=== PATIENT | male | born 1960 | race Caucasian/White ===

== ENCOUNTER 2021-02-20 10:17 | Day surgery (SDC) | payer BC, OTHER ==
[2021-02-19 10:57] LABS: ALANINE AMINOTRANSFERASE 32 U/L (12-78); ALBUMIN 3.8 g/dL (3.4-5.0); ANION GAP 5 mmol/L (5-15); CALCIUM 9.3 mg/dL (8.5-10.1); CHLORIDE 105 mmol/L (98-107); CREATININE 1.17 mg/dL (0.7-1.3)
[2021-02-19 10:59] LABS: ALKALINE PHOSPHATASE 78 U/L (45-117); BILIRUBIN,TOTAL 1.2 mg/dL (0.2-1.0); TOTAL PROTEIN 8.1 g/dL (6.4-8.2)
[~2021-02-20] VITALS: Ht 165.1 cm; Wt 63.6 kg
[~2021-02-20 10:17] MED LIST: AMLO-211 PO; BENA20TA54 PO; EZET10TA70 PO; ROSU20TA2 PO; SPIR1TAB PO
[2021-02-20] MEDS ORDERED: CHLORHEXIDINE 15 ML UDC PO ONE (11:00)
[2021-02-20] MEDS ORDERED: LACTATED RINGERS 1,000 ML IV SCH (11:00)
[2021-02-20] MEDS ORDERED: MIDAZOLAM 1 MG/ML, 2ML ONE (11:17)
[2021-02-20] MEDS ORDERED: FENTANYL PF 100 MCG/2ML ONE (11:18)
[2021-02-20] MEDS ORDERED: LABETALOL 5MG/ML, 20ML IV PRN (11:30)
[2021-02-20] MEDS ORDERED: PROMETHAZINE 25 MG/ML, 1ML IVPush PRN (11:30)
[2021-02-20] MEDS ORDERED: ONDANSETRON 2MG/ML, 2ML IVPush PRN (11:30)
[2021-02-20] MEDS ORDERED: hydrALAzine 20 MG/ML, 1ML IV PRN (11:30)
[2021-02-20] MEDS ORDERED: OXYcodone 5 MG/5 ML ORAL.SOL UDC PO PRN (11:30)
[2021-02-20] MEDS ORDERED: FENTANYL PF 100 MCG/2ML IV PRN (11:30)
[2021-02-20] MEDS ORDERED: morphine SULFATE 10 MG/ML, 1ML IVPush PRN (11:30)
[2021-02-20] MEDS ORDERED: GLUCAGON 1 MG ONE (11:32)
[2021-02-20] MEDS ORDERED: PROPOFOL 10 MG/ML, 20ML ONE (11:44)
[2021-02-21] MEDS ORDERED: ATOR20TA PO (08:41)
[2021-02-21] MEDS ORDERED: FLUT9.9S NAS (08:42)
== END 2021-02-20 12:44 | disposition home or self-care (01) ==
LOC: OUT 10:17 → MERGE 12:00 → OUT 12:44
PROVIDERS: ATTEND Internal Medicine
DX: D12.0 Benign neoplasm of cecum (principal); K57.30 Diverticulosis of large intestine without perforation or abscess without bleeding; K64.8 Other hemorrhoids; I10 Essential (primary) hypertension; E78.5 Hyperlipidemia, unspecified; Z79.899 Other long term (current) drug therapy
CPT/HCPCS: 36415; 45381; 45385; 80053; 88305; 93005; J1610; J2250; J2704; J3010; J7120

== ENCOUNTER 2021-02-21 08:12 | Inpatient (IN) | payer OTHER ==
[~2021-02-21] VITALS: Ht 165.1 cm; Wt 60.0 kg
[2021-02-21] MEDS ORDERED: ONDANSETRON 2MG/ML, 2ML ONE (08:29)
[2021-02-21] MEDS ORDERED: ONDANSETRON 2MG/ML, 2ML IVPush ONE (08:30)
[2021-02-21] MEDS ORDERED: SODIUM CHLORIDE 0.9% 1,000ML IVBOLUS ONE (08:30)
--- NOTE | 2021-02-21 08:32 | NUR ---
PT PRESENTS TO ED POST COLONOSCOPY YESTERDAY, STATES HE BEGAN TO HAVE BRIGHT RED BLOOD PER RECTUM STARTING LAST NIGHT. PT IS A&O, RESPS EVEN AND UNLABORED, ALL MONITORS IN PLACE. REPEAT BP 97/64, TAKEN IN SUPINE POSITION. PT DENIES PAIN, HOWEVER DID BEGIN TO VOMIT ONCE ROOMED, MD PALMER AWARE. PRBC'S ORDERED, THIS RN INSTRUCTED TO HOLD TRANSFUSION AT THIS TIME PT IS NOT ACTIVELY BLEEDING PER RECTUM AND BP IMPROVED ONCE LAYING. THIS RN INSTRUCTED BY MD PALMER TO HOLD PRBC'S UNTIL HEMOGLOBIN/HEMATOCRIT RESULTED.
--- NOTE | 2021-02-21 08:33 | NUR ---
x2 larg bore IV started, NS wide open on pressure bag. Pt with episode of n/v no blood. verbal for zofran. 0833: 97/s pt responding well to IVF. Pt was t/c lab took blood.
--- NOTE | 2021-02-21 08:38 | NUR ---
Pt reports nausea improved s/p zofran, pt had emesis x 1 (small, clear in color), no blood noted in emesis. pt is a&o, resps even and unlabored, nsr on monitoring and evaluation advisor rate 60s at this time. pt reports he has had 5 bloody bowel movements since this am, starting at 0330, none yet in ED. Per MD Olmos, blood bank only to have one unit of blood on standby, blood bank notified.
[2021-02-21] MEDS ORDERED: ATOR20TA PO (08:41)
[2021-02-21] MEDS ORDERED: FLUT9.9S NAS (08:42)
[2021-02-21 08:45] LABS: BASOPHILS % (AUTO) 1 % (0-1); EOSINOPHILS % (AUTO) 2 % (1-7); LYMPHOCYTES % (AUTO) 20 % (22-44); MEAN CORPUSCULAR HGB CONC 34.3 g/dL (33.2-36.2); MEAN PLATELET VOLUME 8.1 fL (7.4-10.4); MONOCYTES % (AUTO) 6 % (2-9); NEUTROPHILS % (AUTO) 71 % (42-75); PLATELET COUNT 297 x10^3/uL (130-400); RED BLOOD COUNT 4.34 x10^6/uL (4.38-5.82); RED CELL DISTRIBUTION WIDTH 13.1 % (9.4-14.8)
[2021-02-21 08:48] LABS: ALANINE AMINOTRANSFERASE 26 U/L (12-78); ALBUMIN 3.1 g/dL (3.4-5.0); ANION GAP 9 mmol/L (5-15); CALCIUM 8.8 mg/dL (8.5-10.1); CHLORIDE 108 mmol/L (98-107); CREATININE 1.92 mg/dL (0.7-1.3)
[2021-02-21 08:50] LABS: ALKALINE PHOSPHATASE 64 U/L (45-117); BILIRUBIN,TOTAL 0.7 mg/dL (0.2-1.0); TOTAL PROTEIN 6.4 g/dL (6.4-8.2)
--- NOTE | 2021-02-21 09:03 | NUR ---
pt moved from trauma 3 to room 15, pt a&o, resps even and unlabored, nsr on athletic monitor. no further emesis, no bm during this visit. pt remains normotensive. report given to MINGO Tompkins who is assuming care, awaiting labs and dispo at this time.
--- NOTE | 2021-02-21 09:04 | NUR ---
ASSUMING CARE OF PT AFTER REPORT FROM LESLI AGUILA.
--- NOTE | 2021-02-21 09:11 | NUR ---
PER DR. PALMER NO BLOOD TRANSFUSION AT THIS TIME. PT TO BE ADMITTED.
[2021-02-21] MEDS ORDERED: GOLYTELY 4,000ML ORAL.SOL PO ONE (09:16)
--- NOTE | 2021-02-21 09:47 | NUR ---
REPORT TO MIRNA AGUILA.
[2021-02-21] MEDS ORDERED: OXYcodone IR 5MG TABLET PO PRN (12:00)
[2021-02-21] MEDS ORDERED: ACETAMINOPHEN 325 MG TABLET PO PRN (12:00)
[2021-02-21] MEDS ORDERED: ONDANSETRON 2MG/ML, 2ML IVPush PRN (12:00)
[2021-02-21] MEDS ORDERED: D5%-0.9% NACL 1,000 ML IV SCH (12:00)
[2021-02-21] MEDS ORDERED: hydrALAzine 20 MG/ML, 1ML IVPush PRN (12:00)
[2021-02-21] MEDS ORDERED: morphine SULFATE 10 MG/ML, 1ML IVPush PRN (12:00)
[2021-02-21] MEDS ORDERED: PROMETHAZINE 25 MG/ML, 1ML IM PRN (12:00)
[2021-02-21] MEDS ORDERED: ONDANSETRON ODT 4 MG PO PRN (12:00)
[2021-02-21 12:17] VITALS: BP 129/80
[2021-02-21] MEDS ORDERED: MIDAZOLAM 1 MG/ML, 2ML ONE (14:48)
[2021-02-21] MEDS ORDERED: CHLORHEXIDINE 15 ML UDC ONE (14:50)
[2021-02-21] MEDS: SODIUM CHLORIDE 0.9% 1,000 ML IV SCH (15:30)
[2021-02-21] MEDS ORDERED: GLUCAGON 1 MG ONE (15:32)
[2021-02-21 19:36] VITALS: BP 116/73
[2021-02-21 20:25] VITALS: BP 145/83
[2021-02-21] MEDS ORDERED: MELATONIN 5 MG TABLET PO PRN (22:00)
[2021-02-22] MEDS: SODIUM CHLORIDE 0.9% 1,000 ML IV SCH ×2 (01:58→11:30)
[2021-02-22 03:39] VITALS: BP 134/67
[2021-02-22 07:21] VITALS: BP 160/71
[2021-02-22] MEDS: INSULIN LISPRO 100 UNITS/ML, PEN SQ-INSULIN SCH ×2 (08:00→11:00)
[2021-02-22] MEDS ORDERED: EZETIMIBE 10 MG TABLET PO SCH (09:00)
[2021-02-22] MEDS ORDERED: AMLODIPINE 10 MG TAB PO SCH (09:00)
[2021-02-22 09:54] LABS: ALANINE AMINOTRANSFERASE 20 U/L (12-78); ALBUMIN 2.6 g/dL (3.4-5.0); ANION GAP 9 mmol/L (5-15); CALCIUM 7.9 mg/dL (8.5-10.1); CHLORIDE 108 mmol/L (98-107)
[2021-02-22 10:02] LABS: ALKALINE PHOSPHATASE 47 U/L (45-117); BILIRUBIN,TOTAL 0.7 mg/dL (0.2-1.0); CHOLESTEROL, TOTAL 167 mg/dL (140-239); CREATININE 1.06 mg/dL (0.7-1.3); TOTAL PROTEIN 5.4 g/dL (6.4-8.2); TRIGLYCERIDES 201 mg/dL (50-200); VLDL CHOLESTEROL 40 mg/dL (0-25)
[2021-02-22 10:03] LABS: CHOL/HDL RATIO 4.9; HDL CHOL % 20 % (26-37); HDL CHOLESTEROL (DIRECT) 34 mg/dL (40-60); LDL CHOLESTEROL,CALCULATED 93 mg/dL (54-169); LDL/HDL RATIO 2.7 (0.5-3.0)
[2021-02-22] MEDS ORDERED: POTASSIUM CHLORIDE 20 MEQ TAB.ER.PRT PO ONE (11:30)
[2021-02-22 13:47] VITALS: BP 130/69
[2021-02-22] MEDS ORDERED: ATORVASTATIN 20 MG TABLET PO SCH (21:00)
== END 2021-02-22 15:20 | disposition home or self-care (01) | DRG 919 ==
LOC: OR 09:06 → EDIP 09:11 → 3N 10:15
PROVIDERS: ADMIT Internal Medicine; ATTEND Internal Medicine
PROC: 0W3P8ZZ Control Bleeding in Gastrointestinal Tract, Via Natural or Artificial Opening Endoscopic (ICD-10-PCS; principal; 2021-02-21 15:00)
DX: K91.840 Postprocedural hemorrhage of a digestive system organ or structure following a digestive system procedure (principal); N17.0 Acute kidney failure with tubular necrosis; E11.9 Type 2 diabetes mellitus without complications; E78.5 Hyperlipidemia, unspecified; E87.6 Hypokalemia; F17.210 Nicotine dependence, cigarettes, uncomplicated; I10 Essential (primary) hypertension; K57.30 Diverticulosis of large intestine without perforation or abscess without bleeding; K64.4 Residual hemorrhoidal skin tags; Z20.822 Contact with and (suspected) exposure to COVID-19; I95.9 Hypotension, unspecified; Y83.8 Other surgical procedures as the cause of abnormal reaction of the patient, or of later complication, without mention of misadventure at the time of the procedure; Z79.899 Other long term (current) drug therapy; Z83.3 Family history of diabetes mellitus
CPT/HCPCS: 36415; 80053; 80061; 82962; 83036; 83735; 84100; 84443; 85014; 85018; 85025; 86850; 86900; 86923; 87635; 93005; 96374; 99291; G0378; J2250; J2405; J1610; J7030